=== PATIENT | female | born 1935 | race American Indian/Alaskan Native ===

== ENCOUNTER 2021-02-12 06:45 | Emergency (ER) | payer OTHER ==
[~2021-02-12] VITALS: Ht 157.5 cm; Wt 79.4 kg
[~2021-02-12 06:45] MED LIST: ARTHRITIS MED; LOVA10TA55 PO; OMEPRAZOLE PO
[2021-02-12 06:50] VITALS: BP_SYST 150
--- NOTE | 2021-02-12 06:50 | NUR ---
Patient to ER bed 2 to gown for evaluation. Side rails up. Report given to .
--- NOTE | 2021-02-12 06:51 | NUR ---
Came in ER ambulatory with cane from home accompanied by , VALENTE, breathing spontaneously at room air, not in distress noted. With chief compliants of Left leg pain since yesterday, s/p hiatal nernia surgery 6days ago, discharge last Wednesday at [facility]. Known with GERD nad hypertension. Allergy to Codeine, Vital signs stable
--- NOTE | 2021-02-12 07:11 | NUR ---
Seen and examined by Dr. Crenshaw, ER Attending
--- NOTE | 2021-02-12 07:12 | NUR ---
Endorsed to Day shift INOCENCIO Chavira for continuity of care
[2021-02-12 07:35] LABS: BASOPHILS # (AUTO) 0.1 K/uL (0.0-0.2); BASOPHILS % (AUTO) 0.7 % (0.0-2.0); EOSINOPHILS # (AUTO) 0.5 K/uL (0.0-0.4); EOSINOPHILS % (AUTO) 6.2 % (0.0-4.0); HEMATOCRIT 36.4 % (36-48); HEMOGLOBIN 11.9 g/dL (12.0-16.0); LYMPHOCYTES # (AUTO) 1.4 K/uL (1.0-5.5); MEAN CORPUSCULAR HEMOGLOBIN 28 pg (27-31); MEAN CORPUSCULAR HGB CONC 33 % (32-36); MEAN CORPUSCULAR VOLUME 85 fL (79.0-98.0); MONOCYTES # (AUTO) 0.6 K/uL (0.0-1.0); MONOCYTES % (AUTO) 7.8 % (1.7-9.3); NEUTROPHILS # (AUTO) 4.8 K/uL (1.8-7.7); NEUTROPHILS % (AUTO) 66.3 % (40.0-70.0); PLATELET COUNT (AUTO) 321 K/uL (130-430); RED BLOOD CELL COUNT(AUTO) 4.28 MIL/uL (4.2-6.2); RED CELL DISTRIBUTION WIDTH 18.1 % (9.0-15.0); WHITE BLOOD COUNT (AUTO) 7.3 K/uL (4.8-10.8)
--- NOTE | 2021-02-12 07:39 | NUR ---
ULTRASOUND AT THE BEDSIDE
[2021-02-12 07:45] LABS: ANION GAP 10 (5-15); CALCIUM 8.8 mg/dL (8.4-11.0); CHLORIDE 103 mmol/L (98-107); CREATININE 0.96 mg/dL (0.55-1.30); GLUCOSE 95 mg/dL (70-99); POTASSIUM 3.7 mmol/L (3.5-5.1); SODIUM SERUM 137 mmol/L (136-145); UREA NITROGEN, BLOOD 16 mg/dL (8-21)
[2021-02-12 07:51] LABS: ALANINE AMINOTRANSFERASE 16 U/L (12-78); ALBUMIN 3.1 g/dL (3.4-4.8); ASPARTATE AMINOTRANSFERASE 13 U/L (10-37); TOTAL BILIRUBIN 0.4 mg/dL (0.0-1.0)
--- NOTE | 2021-02-12 08:30 | NUR ---
PT RESTING IN BED, NO S/SX OF DISTRESS, V/S STABLE
[2021-02-12 08:51] LABS: BILIRUBIN,URINE NEGATIVE (NEGATIVE); BLOOD, URINE NEGATIVE (NEGATIVE); COLOR,URINE YELLOW (YELLOW); GLUCOSE,URINE NEGATIVE (NEGATIVE); KETONES,URINE 2+ (NEGATIVE); LEUKOCYTE ESTERASE ,URINE 1+ (NEGATIVE); NITRITE, URINE NEGATIVE (NEGATIVE); PROTEIN URINE NEGATIVE (NEGATIVE); UROBILINOGEN,URINE 0.2 (0.2-1.0)
[2021-02-12 08:54] LABS: CLARITY/URINE SLIGHTLY HAZY (CLEAR)
[2021-02-12 09:02] LABS: BACTERIA,URINE MODERATE /HPF (None Seen); RBC,URINE 0-3 /HPF (0-3)
[2021-02-12] MEDS ORDERED: CEPH500C2 PO (09:17)
[2021-02-12 09:29] VITALS: BP_SYST 120
--- NOTE | 2021-02-12 09:30 | NUR ---
Patient given written and verbal discharge instructions and verbalizes understanding. ER MD discussed with patient the results and treatment provided. Patient in stable condition. ID arm band removed. Rx of CEPHALEXIN given. Patient educated on pain management and to follow up with PMD. Pain Scale 0/10. Opportunity for questions provided and answered. Medication side effect fact sheet provided.
== END 2021-02-12 09:30 | disposition home or self-care (01) ==
LOC: SED 06:45
DX: M79.605 Pain in left leg (principal); N39.0 Urinary tract infection, site not specified; K21.9 Gastro-esophageal reflux disease without esophagitis; Z88.5 Allergy status to narcotic agent
CPT/HCPCS: 36415; 80053; 81000; 82550; 85025; 87086; 93005; 93971; 99285